=== PATIENT | male | born 1995 ===

== ENCOUNTER 2017-02-01 11:41 | Emergency (ER) | payer SELFPAY ==
[2017-02-01 12:00] VITALS: BP 123/69; PULSE 68; RESP 18; TEMP 99.1; O2SAT 97
--- NOTE | 2017-02-01 22:52 | EDPHY ---
ED Progress Note Narrative: This patient left the emergency department prior to being seen.
== END 2017-02-01 16:55 | disposition left against medical advice (07) ==
DX: Z53.21 Procedure and treatment not carried out due to patient leaving prior to being seen by health care provider (principal)